=== PATIENT | female | born 1995 | race Caucasian/White ===

== ENCOUNTER 2018-03-05 17:20 | Emergency (ER) | payer BC ==
[2018-03-05 18:17] VITALS: BP 117/72
--- NOTE | 2018-03-05 18:32 | UC ---
Skin Complaint HPI - HPI Summary HPI Summary: Patient is complaining of a 4-5 day history of an itchy burning rash in her buttock area. She denies any history of MRSA or diabetes. There is no associated fever. Patient denies any new sexual partners - History of Current Complaint Chief Complaint: UCSkin Time Seen by Provider: 03/05/18 18:22 Stated Complaint: RASH Hx Obtained From: Patient Hx Last Menstrual Period: 02/05/18 Onset/Duration: Gradual Onset Timing: Constant Pain Intensity: 0 Aggravating Factor(s): Nothing Alleviating Factor(s): Nothing Associated Signs & Symptoms: Positive: Rash - Allergy/Home Medications Allergies/Adverse Reactions: Allergies Allergy/AdvReac Type Severity Reaction Status Date / Time No Known Allergies Allergy Verified 03/05/18 18:09 Review of Systems Constitutional: Negative Skin: Rash Eyes: Negative ENT: Negative Respiratory: Negative Cardiovascular: Negative Gastrointestinal: Negative Genitourinary: Negative Motor: Negative Neurovascular: Negative Musculoskeletal: Negative Neurological: Negative Psychological: Negative Is Patient Immunocompromised?: No All Other Systems Reviewed And Are Negative: Yes PMH/Surg Hx/FS Hx/Imm Hx Psychological History: Anxiety - Surgical History Surgical History: None - Family History Known Family History: Positive: Diabetes Negative: Blood Disorder - Social History Occupation: Student Lives: Alone Alcohol Use: Rare Substance Use Type: None Smoking Status (MU): Never Smoked Tobacco - Immunization History Most Recent Influenza Vaccination: none Vaccination Up to Date: Yes Physical Exam Triage Information Reviewed: Yes Appearance: Well-Appearing Vital Signs: Initial Vital Signs Temp 98.8 F 03/05/18 18:11 Pulse 81 03/05/18 18:11 Resp 17 03/05/18 18:11 BP 117/72 03/05/18 18:11 Pulse Ox 97 03/05/18 18:11 Vital Signs Reviewed: Yes Eyes: Positive: Conjunctiva Clear ENT: Positive: Pharynx normal, TMs normal. Negative: Nasal congestion, Nasal drainage Neck: Positive: Supple, Nontender, No Lymphadenopathy Respiratory: Positive: Lungs clear, Normal breath sounds Cardiovascular: Positive: RRR, No Murmur Abdomen Description: Positive: Nontender, No Organomegaly, Soft Bowel Sounds: Positive: Present Pelvic Exam: Positive: External Exam Normal Musculoskeletal: Positive: ROM Intact Neurological: Positive: Alert Psychological: Positive: Age Appropriate Behavior Skin Exam: Normal Skin: Positive: rashes - Patient has multiple excoriated spots on her right buttock. Just inside the right gluteal fold there is an approximate 2.5 centimeter area where the skin has superficial erosion / chafing and is pink. there areas are tender but not fluctuant. Course/Dx - Course Course Of Treatment: no concern for infestation, fungal infection or herpetic lesions. the rash is concerning for MRSA thus cultured. will tx chafed area with bactroban and add bactrim po. need for close f/u stressed. - Diagnoses Provider Diagnoses: skin infection R buttock Discharge - Sign-Out/Discharge Documenting (check all that apply): Patient Departure All imaging exams completed and their final reports reviewed: No Studies - Discharge Plan Condition: Stable Disposition: HOME Prescriptions: Mupirocin 2% OINT* [Bactroban 2 % Oint*] 1 applic TOPICAL BID 7 Days #1 tube Sulfamethox/Trimethoprim DS* [Bactrim DS 800/160 TAB*] 1 tab PO BID 10 Days #20 tab Patient Education Materials: Cellulitis (DC) Referrals: [facility] [Outside] - 2 Days Additional Instructions: DIAGNOSIS: SKIN INFECTION R BUTTOCK - Billing Disposition and Condition Condition: STABLE Disposition: Home
--- NOTE | 2018-03-07 07:41 | UC ---
- Progress Note Progress Note: MRSA neg 1+ positive cocci On Bactrim await sensitivity no change Caden 03/07 Discharge - Sign-Out/Discharge Documenting (check all that apply): Post-Discharge Follow Up All imaging exams completed and their final reports reviewed: No Studies - Discharge Plan Condition: Stable Disposition: HOME Prescriptions: Mupirocin 2% OINT* [Bactroban 2 % Oint*] 1 applic TOPICAL BID 7 Days #1 tube Sulfamethox/Trimethoprim DS* [Bactrim DS 800/160 TAB*] 1 tab PO BID 10 Days #20 tab Patient Education Materials: Cellulitis (DC) Referrals: [facility] [Outside] - 2 Days Additional Instructions: DIAGNOSIS: SKIN INFECTION R BUTTOCK - Billing Disposition and Condition Condition: STABLE Disposition: Home
== END 2018-03-05 18:52 | disposition home or self-care (01) ==
LOC: UCCORT 17:20
DX: L08.9 Local infection of the skin and subcutaneous tissue, unspecified (principal); B96.89 Other specified bacterial agents as the cause of diseases classified elsewhere
CPT/HCPCS: 87070; 87205; 87640; 87641; 99212; G0463